=== PATIENT | female | born 1980 | race Two or more races ===

== ENCOUNTER 2022-02-17 18:54 | Inpatient (IN) | payer MEDICAID ==
[~2022-02-17] VITALS: Ht 157.5 cm; Wt 112.5 kg
[2022-02-17 19:30] VITALS: BP 145/80
[2022-02-17 20:00] VITALS: BP 145/80
[2022-02-17] MEDS ORDERED: IV NS 0.9% 1,000 ML IV PRN (20:30)
--- NOTE | 2022-02-17 21:00 | NUR ---
ADMITTED PATIENT FROM [facility] FOR ERCP. ALERT/ORIENTED X4, STABLE ON ROOM AIR, NO COMPLAIN OF ABDOMINAL PAIN, NO N/V, VS STABLE, AFEBRILE, INDEPENDENT OF ADLS, CONTINENT OF BOWEL AND BLADDER, ABDOMEN TENDER, NPO NOW. ADMITTING IS JENNIFER DOMINGUEZ. COVID NEGATIVE.
[2022-02-17] MEDS ORDERED: ONDANSETRON HCL/PF 4 MG/2 ML VIAL IVP PRN (22:30)
[2022-02-17] MEDS: IV D5/ 0.9% NACL 1,000 ML IV PRN (22:38)
[2022-02-17] MEDS ORDERED: ENOXAPARIN SODIUM 40 MG/0.4 ML DISP.SYRIN SQ ONE (23:00)
[2022-02-17] MEDS ORDERED: PIPERACILLIN /TAZOBACTAM 3.375 G VIAL IV ONE (23:09)
[2022-02-17] MEDS: ZOSYN IVPB 3.375 G in IV D5W 50ml IV SCH (23:50)
[2022-02-18] MEDS: KETOROLAC TROMETHAMINE INJ 30 MG/ML VIAL IV PRN ×2 (01:44→14:54)
[2022-02-18] MEDS ORDERED: PIPERACILLIN /TAZOBACTAM 3.375 G VIAL IV ONE (05:29)
[2022-02-18] MEDS: ZOSYN IVPB 3.375 G in IV D5W 50ml IV SCH (05:49)
--- NOTE | 2022-02-18 05:51 | NUR ---
PATIENT IN BED, ALERT/ORIENTED X4, [place] SPEAKING ONLY, STABLE ON ROOM AIR, NO ABDOMINAL PAIN, NO N/V, NPO ON ADMISSION, D5NS AT 100 ML/HR, ZOSYN Q6HRS, INDEPENDENT WITH ADLS, AMBULATORY, VOIDING SPONTANEOUSLY, ERCP TODAY, NO CONSENT YET, NO ORDER YET, ANESTHESIA CONSENT SIGNED. AFTER ERCP DR. MASSEY CONSULTED FOR ACUTE COLECYSTITIS
[2022-02-18 06:25] LABS: BASOPHILS % (AUTO) 0.4 % (0.0-2.0); EOSINOPHILS % (AUTO) 1.9 % (0.0-6.0); HEMATOCRIT 35 % (33-45); LYMPHOCYTES # (AUTO) 1.8 K/uL (0.8-4.8); LYMPHOCYTES % (AUTO) 26.7 % (20.0-44.0); MEAN CORPUSCULAR HGB CONC 35 g/dl (31.0-36.0); MEAN CORPUSCULAR VOLUME 92 fL (82-100); MONOCYTES # (AUTO) 0.6 K/uL (0.1-1.30); MONOCYTES % (AUTO) 8.2 % (2.0-12.0); NEUTROPHILS # (AUTO) 4.3 K/uL (1.8-8.9); NEUTROPHILS % (AUTO) 62.8 % (43.0-81.0); PLATELET COUNT (AUTO) 176 K/uL (150-450); RED BLOOD CELL COUNT(AUTO) 3.79 MIL/uL (4.0-5.2); WHITE BLOOD COUNT (AUTO) 6.9 K/uL (4.3-11.0)
[2022-02-18 06:54] LABS: CALCIUM, SERUM 8.3 mg/dL (8.5-10.1); CREATININE 0.6 mg/dL (0.6-1.3); MAGNESIUM 2.1 mg/dL (1.8-2.4); PHOSPHORUS 3.1 mg/dL (2.5-4.9); POTASSIUM 3.3 mmol/L (3.5-5.1)
--- NOTE | 2022-02-18 07:30 | NUR ---
RN Receiving report. Patient AOx4 able to express her concerns. Patient states she is worried about her kids at home since her had to miss work to watch them. Patient states she only has some discomfort, pain is 2/10. Discussed plan of care and patient verbalized agreement. Right arm AC 20g with fluids running as ordered. No signs of infiltration. States she wants to have the procedure as soon as possible to go back home. All safety precautions taken, call light and table within reach, bed at lowest position. Will continue to monitor and provide care as needed.
[2022-02-18 08:00] VITALS: BP 141/60
[2022-02-18] MEDS: PANTOPRAZOLE 40 MG VIAL IV SCH (08:29)
[2022-02-18] MEDS ORDERED: FENTANYL PF 100MCG/2ML AMPUL ONE (10:47)
[2022-02-18] MEDS ORDERED: FAMOTIDINE/PF INJ 20 MG/2 ML VIAL IV ONE (10:47)
[2022-02-18] MEDS ORDERED: SUCCINYLCHOLINE CHLORIDE 20 MG/ML VIAL ONE (10:48)
[2022-02-18] MEDS ORDERED: INDOMETHACIN 50 MG SUPP.RECT ONE ×2 (11:14)
[2022-02-18] MEDS ORDERED: IOHEXOL 0 ML IV ONE (11:14)
[2022-02-18] MEDS ORDERED: IOHEXOL 50 ML IV ONE (11:14)
--- NOTE | 2022-02-18 11:25 | NUR ---
RN Note Patient signed all consents for ERCP, states she is ready for procedure. Patient transferred out of unit safely by surgery team. All safety precautions taken.
[2022-02-18] MEDS ORDERED: POTASSIUM CL. PREMIX PERIPHER. 50 ML IV SCH (12:00)
--- NOTE | 2022-02-18 14:35 | NUR ---
RN Accepting Note Patient arrived back to our unit, all safety precautions taken. Patient states no pain only some throat discomfort. Will continue to monitor through out shift.
[2022-02-18] MEDS: POTASSIUM CL. PREMIX PERIPHER. 50 ML IV SCH ×2 (14:53→17:05)
[2022-02-18] MEDS: PIPERACILLIN /TAZOBACTAM 3.375 G in IV D5W 100 ML IV SCH ×2 (14:53→20:31)
[2022-02-18] MEDS: IV D5/ 0.9% NACL 1,000 ML IV PRN (14:55)
[2022-02-18 16:00] VITALS: BP 146/72
--- NOTE | 2022-02-18 18:34 | NUR ---
RN Closing Note Patient AOx4 able to express her own concern. Patient remained safe throughout shift, IV fluids running as ordered. All safety precautions taken, call light and table within reach, bed at lowest position. Will endorse to night nurse for continuity of care.
--- NOTE | 2022-02-18 19:31 | NUR ---
RN Opening Note Patient AOx4 able to express her own concern.IV fluids running as ordered. All safety precautions taken, call light and table within reach, bed at lowest position. All nursing need met at this time.
[2022-02-18 20:00] VITALS: BP 152/80
[2022-02-18] MEDS: ENOXAPARIN SODIUM 40 MG/0.4 ML DISP.SYRIN SQ SCH (20:34)
[2022-02-19] MEDS: PIPERACILLIN /TAZOBACTAM 3.375 G in IV D5W 100 ML IV SCH ×3 (04:45→20:40)
[2022-02-19] MEDS: KETOROLAC TROMETHAMINE INJ 30 MG/ML VIAL IV PRN ×2 (04:55→17:39)
--- NOTE | 2022-02-19 06:35 | NUR ---
RN Closing Note Patient AOx4 able to express her own concern.IV fluids running as ordered. pt provided with pain management as needed. all due meds given as ordered tolerated well.All safety precautions taken, call light and table within reach, bed at lowest position. All nursing need met at this time. will endorse care to day shift nurse.
[2022-02-19 07:04] LABS: BASOPHILS % (AUTO) 0.1 % (0.0-2.0); HEMATOCRIT 37 % (33-45); HEMOGLOBIN 12.8 g/dL (11.5-14.8); LYMPHOCYTES # (AUTO) 1.4 K/uL (0.8-4.8); LYMPHOCYTES % (AUTO) 17.7 % (20.0-44.0); MEAN CORPUSCULAR HGB CONC 34 g/dl (31.0-36.0); MEAN CORPUSCULAR VOLUME 93 fL (82-100); MONOCYTES # (AUTO) 0.5 K/uL (0.1-1.30); MONOCYTES % (AUTO) 6.1 % (2.0-12.0); NEUTROPHILS # (AUTO) 5.7 K/uL (1.8-8.9); NEUTROPHILS % (AUTO) 74.1 % (43.0-81.0); PLATELET COUNT (AUTO) 178 K/uL (150-450); RED BLOOD CELL COUNT(AUTO) 4.01 MIL/uL (4.0-5.2); WHITE BLOOD COUNT (AUTO) 7.7 K/uL (4.3-11.0)
[2022-02-19 07:15] LABS: ALBUMIN 2.7 g/dL (3.4-5.0); BILIRUBIN,DIRECT 3.2 mg/dL (0.0-0.2); BILIRUBIN,TOTAL 4.1 mg/dL (0.2-1.0); CALCIUM, SERUM 8.2 mg/dL (8.5-10.1); CREATININE 0.8 mg/dL (0.6-1.3); MAGNESIUM 2.1 mg/dL (1.8-2.4); PHOSPHORUS 2.7 mg/dL (2.5-4.9); POTASSIUM 3.2 mmol/L (3.5-5.1); TOTAL PROTEIN, SERUM 7.1 g/dL (6.4-8.2)
--- NOTE | 2022-02-19 07:30 | NUR ---
RN Opening report. Patient AOx4 able to express her concerns. States she is in pain since she is not in her own bed performing ADL's, also worried about her kids, "they are safe with their dad but I miss them". IV with no signs of infiltration. States she wants to have the procedure as soon as possible to go back home. Discussed plan of care, pt verbalized agreement. All safety precautions taken, call light and table within reach, bed at lowest position. Will continue to monitor and provide care as needed.
[2022-02-19] MEDS: ACETAMINOPHEN 325 MG TABLET PO PRN ×2 (07:59→18:57)
[2022-02-19 08:00] VITALS: BP 155/98
[2022-02-19] MEDS: PANTOPRAZOLE 40 MG VIAL IV SCH (08:39)
[2022-02-19] MEDS: POTASSIUM CL. PREMIX PERIPHER. 50 ML IV SCH ×4 (11:39→14:36)
[2022-02-19] MEDS: IV D5/ 0.9% NACL 1,000 ML IV PRN (13:28)
[2022-02-19 18:20] VITALS: BP 155/98
[2022-02-19 18:22] VITALS: BP 166/79
[2022-02-19 20:00] VITALS: BP 175/93
[2022-02-19] MEDS: ENOXAPARIN SODIUM 40 MG/0.4 ML DISP.SYRIN SQ SCH (20:42)
[2022-02-20] MEDS: KETOROLAC TROMETHAMINE INJ 30 MG/ML VIAL IV PRN (03:28)
[2022-02-20] MEDS: PIPERACILLIN /TAZOBACTAM 3.375 G in IV D5W 100 ML IV SCH ×2 (04:31→13:08)
[2022-02-20] MEDS ORDERED: TRAMADOL HCL 50 MG TABLET PO ONE (05:00)
--- NOTE | 2022-02-20 06:36 | NUR ---
RN Opening Note Patient Catarina able to express her own concern. Patient remained safe throughout shift, IV fluids running as ordered. All safety precautions taken, call light and table within reach, bed at lowest position. Will endorse to night nurse for continuity of care.will endorse care to sahara shift nurse. Addendum: 02/20/22 at 0637 by LUNA OLMEDO RN closing
[2022-02-20 06:45] LABS: BASOPHILS % (AUTO) 0.2 % (0.0-2.0); HEMATOCRIT 38 % (33-45); HEMOGLOBIN 13.2 g/dL (11.5-14.8); LYMPHOCYTES # (AUTO) 1.1 K/uL (0.8-4.8); LYMPHOCYTES % (AUTO) 18.1 % (20.0-44.0); MEAN CORPUSCULAR HGB CONC 34 g/dl (31.0-36.0); MEAN CORPUSCULAR VOLUME 93 fL (82-100); MONOCYTES # (AUTO) 0.4 K/uL (0.1-1.30); MONOCYTES % (AUTO) 6.9 % (2.0-12.0); NEUTROPHILS # (AUTO) 4.5 K/uL (1.8-8.9); NEUTROPHILS % (AUTO) 72.8 % (43.0-81.0); PLATELET COUNT (AUTO) 174 K/uL (150-450); RED BLOOD CELL COUNT(AUTO) 4.12 MIL/uL (4.0-5.2); WHITE BLOOD COUNT (AUTO) 6.2 K/uL (4.3-11.0)
[2022-02-20 07:30] LABS: CALCIUM, SERUM 8.4 mg/dL (8.5-10.1); CREATININE 0.7 mg/dL (0.6-1.3); MAGNESIUM 2.1 mg/dL (1.8-2.4); PHOSPHORUS 2.6 mg/dL (2.5-4.9); POTASSIUM 3.4 mmol/L (3.5-5.1)
--- NOTE | 2022-02-20 07:45 | NUR ---
MS RN NOTES: RECEIVED PT AWAKE. A/O X4, [place] SPK. ON RA TOLERATING WELL, NO S/S OF SOB AND ACUTE DISTRESS. DENIES PAIN AT THIS TIME IV ACCESS AT L HAND #20 RUNNING D5 NS @ 100ML/HR. SAFETY MEASURES IN PLACE, CALL LIGHT AND TABLE WITHIN REACH, WILL CONT WITH PLAN OF CARE DURING SHIFT.
[2022-02-20 08:22] VITALS: BP 152/86
--- NOTE | 2022-02-20 09:00 | NUR ---
MS RN NOTES: TYLENOL 650MG GIVEN PO FOR PAIN 06/23, WILL REASSESS.
[2022-02-20] MEDS: PANTOPRAZOLE 40 MG VIAL IV SCH (09:13)
[2022-02-20] MEDS: POTASSIUM CL. PREMIX PERIPHER. 50 ML IV SCH ×2 (10:20→11:39)
[2022-02-20] MEDS ORDERED: METR500T PO (15:06)
[2022-02-20] MEDS ORDERED: CIPR500T5 PO (15:06)
[2022-02-20] MEDS: ACETAMINOPHEN 325 MG TABLET PO PRN (15:10)
[2022-02-20 16:54] VITALS: BP 140/68
--- NOTE | 2022-02-20 19:12 | NUR ---
MS RN DC NOTES: PT STABLE AT THIS TIME, VS WNL, NO S/S OF SOB AND DISTRESS ON RA. DC INSTRUCTIONS DISCUSSED AND SIGNED BY PT. BELONGINGS LIST SIGNED. ADDRESSED QUESTIONS APPROPRIATE, PT VERBALIZED UNDERSTANDING. IV ACCESS AND ID BAND REMOVED. PT ESCORTED BY STAFF TO LOBBY, TRANSPORTATION IS PRIVATE CAR, LEFT WITH SPOUSE.
== END 2022-02-20 19:12 | disposition home or self-care (01) ==
LOC: MED 19:41
PROVIDERS: ADMIT Nurse Practitioner Acute Care; ATTEND Student in an Organized Health Care Education/Training Program
PROC: 0FC98ZZ Extirpation of Matter from Common Bile Duct, Via Natural or Artificial Opening Endoscopic (ICD-10-PCS; principal; 2022-02-18)
PROC: 0F798DZ Dilation of Common Bile Duct with Intraluminal Device, Via Natural or Artificial Opening Endoscopic (ICD-10-PCS; 2022-02-18)
DX: K80.62 Calculus of gallbladder and bile duct with acute cholecystitis without obstruction (principal); D68.59 Other primary thrombophilia; E44.0 Moderate protein-calorie malnutrition; E88.09 Other disorders of plasma-protein metabolism, not elsewhere classified; E83.51 Hypocalcemia; E03.9 Hypothyroidism, unspecified; F41.9 Anxiety disorder, unspecified; E66.01 Morbid (severe) obesity due to excess calories; E11.9 Type 2 diabetes mellitus without complications; R74.01 Elevation of levels of liver transaminase levels; K82.8 Other specified diseases of gallbladder; E87.6 Hypokalemia; Z68.41 Body mass index [BMI] 40.0-44.9, adult
CPT/HCPCS: 36415; 74018; 80048-TC; 80076-TC; 83735-TC; 84100-TC; 84703-TC; 85025-TC; 87081-TC; C9113; G0378; J0330; J0690; J1650; J1885; J2405; J2543; J2704; J2765; J3010; J3480; J3490; J7030; J7040; J7042; J7060; Q9967

== ENCOUNTER 2022-07-18 21:02 | Emergency (ER) | payer MEDICAID, OTHER ==
[~2022-07-18] VITALS: Ht 162.6 cm; Wt 117.9 kg
[~2022-07-18 21:02] MED LIST: CIPR500T5 PO; METR500T PO
--- NOTE | 2022-07-18 23:04 | NUR ---
BIBS C/O HIGH BP, EDWARDS, BLURRY VISION, AND R EAR ACHE. PT A.OX4. TOLERATING R/A WELL WITH NO RESP DISTRESS. SAFETY MEASURES IN PLACE.
[2022-07-18] MEDS ORDERED: MECLIZINE HCL 12.5 MG TABLET PO ONE (23:30)
--- NOTE | 2022-07-18 23:30 | NUR ---
PT RETURNED TO ER BED [address]
[2022-07-18 23:38] LABS: CALCIUM, SERUM 9.7 mg/dL (8.5-10.1); CARBON DIOXIDE 31 mmol/L (21-32); CHLORIDE 103 mmol/L (98-107); CREATININE 0.6 mg/dL (0.6-1.3); GLUCOSE 105 mg/dL (74-106); POTASSIUM 4.1 mmol/L (3.5-5.1); SODIUM SERUM 138 mmol/L (136-145); UREA NITROGEN, BLOOD 12 mg/dL (7-18)
[2022-07-18] MEDS ORDERED: MECLIZINE HCL 25 MG TABLET ONE (23:52)
[2022-07-19] MEDS ORDERED: MECL-159 PO (05:00)
[2022-07-19 05:12] VITALS: BP 184/103
--- NOTE | 2022-07-19 05:12 | NUR ---
Patient discharged to home in stable condition. Written and verbal after care instructions given. Patient verbalizes understanding of instruction.
== END 2022-07-19 05:10 | disposition home or self-care (01) ==
LOC: ER 21:05
DX: R42 Dizziness and giddiness (principal); I10 Essential (primary) hypertension; E66.9 Obesity, unspecified; Z68.41 Body mass index [BMI] 40.0-44.9, adult; Z79.899 Other long term (current) drug therapy
CPT/HCPCS: 99284; 70450; 80048; 36415; 84484; J8597